=== PATIENT | male | born 1995 | race Caucasian/White ===

== ENCOUNTER 2020-06-12 11:13 | Outpatient (REF) | payer OTHER, SELFPAY | END 2020-06-12 11:14 | disposition home or self-care (01) | LOC: HO.LAB 11:13 | PROVIDERS: Visit Provider Internal Medicine | DX: Z20.822 Contact with and (suspected) exposure to COVID-19 (principal) | CPT/HCPCS: 36415; C9803; U0003; U0005 ==

== ENCOUNTER 2020-06-20 09:26 | Outpatient (REF) | payer OTHER, SELFPAY | END 2020-06-20 09:27 | disposition home or self-care (01) | LOC: HO.LAB 09:26 | PROVIDERS: Visit Provider Internal Medicine | DX: Z20.822 Contact with and (suspected) exposure to COVID-19 (principal) | CPT/HCPCS: 36415; C9803; U0003; U0005 ==

== ENCOUNTER 2021-10-30 22:01 | Emergency (ER) | payer SELFPAY ==
[2021-10-30 22:54] VITALS: BP 128/68; PULSE 72; RESP 16; TEMP 36.7; O2SAT 99; BMI 21.2
--- NOTE | 2021-10-31 00:01 | ED.DENTAL ---
HPI - Dental/Oral General Chief complaint: Dental/Oral Stated complaint: tooth pain Time Seen by Provider: 10/30/21 23:32 Source: patient Mode of arrival: ambulatory History of Present Illness HPI Narrative: 26-year-old male with no significant past medical history presenting to the ED complaining of pain and inflammation to bottom right wisdom tooth. Reports pain to area x months however worsening over the past 3 days. Admits pain radiates to face/ear. Denies difficulty/inability to swallow, drainage from area, drainage/hearing loss from ear, fever, chills. MD Complaint: tooth pain Related Data Previous Rx's Medication Instructions Recorded amoxicillin 875 mg-potassium 1 tab PO BID 7 days #14 tabs 10/31/21 clavulanate 125 mg tablet Allergies Allergy/AdvReac Type Severity Reaction Status Date / Time No Known Allergies Allergy Unverified 10/30/21 22:57 [No Known Allergies*] Review of Systems Review of Systems: Constitutional: No Fever, No Chills, No Fatigue, No Malaise ENT/Mouth: No Ear Pain, No Nasal Congestion, No Hoarseness, No sore throat, No Rhinorrhea, No Swallowing Difficulty, +dental pain, +gum swelling Eyes: No Eye Pain, No Swelling, No Redness Cardiovascular: No Chest Pain, No SOB Respiratory: No Cough, No Sputum, No Wheezing, No Dyspnea Gastrointestinal: No Nausea, No Vomiting, No Diarrhea, No Constipation, No Abdominal pain Musculoskeletal: No joint pain, No Myalgias Skin: No Skin Lesions, No rash Neuro: No Weakness, No Numbness, No Headache Yes all other systems are reviewed and are negative PMFSH Past Medical History Attestation statement: The following information was validated with the patient. Social History Social History Advance Directives: No Advance Directives Information Provided: Yes Physical Exam Vital Signs: Vital Signs: Last Vital Signs Temp 98.1 F 10/30/21 22:54 Pulse 72 10/30/21 22:54 Resp 16 10/30/21 22:54 BP 128/68 10/30/21 22:54 Pulse Ox 99 10/30/21 22:54 O2 Del Method 10/30/21 22:54 BMI result Body Mass Index 21.2 Const: General: cooperative, healthy appearing and no acute distress Orientation/consciousness: patient oriented x3 Limitations: no limitations HEENT: Other: +swelling and tenderness noted to gums surrounding right bottom 3rd molar, + fluctuance, no induration/erythema/cellulitis. No active drainage Head: Yes normal to inspection and Yes atraumatic Ears: hearing grossly normal bilaterally, external ears normal, TM's normal bilaterally and mastoids normal General nose exam: Normal external nose present Face and sinus: Yes normal facial exam Teeth and gingiva: gingiva abnormal Throat: Yes posterior oropharynx normal, Yes tonsils normal, No peritonsillar mass and No uvula laterally displaced Eyes: General: appearance normal, both eyes and all related structures EOM: EOMs intact bilaterally Neck: Neck: Yes normal visual inspection, Yes no lymphadenopathy, Yes no meningeal signs, Yes trachea midline, Yes supple and No anterior neck swelling Resp: Effort & Inspection: normal respiratory effort, no grunting, no respiratory distress and no stridor Auscultation: clear to auscultation bilaterally Cardio: Rate: regular rate Heart sounds: S1 normal heart sound present and S2 normal heart sound present Skin: Rashes: no rashes Wounds: no wounds Neuro: General: patient oriented x3, tone normal and no meningeal signs Gait exam (Neuro): Normal gait present Extrem: General: Yes normal to inspection MDM - Dental/Oral MDM Narrative Medical decision making narrative: 26-year-old male with no significant past medical history presenting to the ED complaining of pain and inflammation to bottom right wisdom tooth. Exam vital signs stable, NAD, nontoxic appearing, physical exam as above. Concern for gingival/dental abscess vs edema or chronic inflammation Plan: Needle aspiration, p.o. antibiotics Differential Diagnosis Differential diagnosis: Likely gingival abscess Medical Records Attestation: I reviewed the patient's medical records. Lab Data Attestation: I reviewed the patient's lab results. Procedures Abscess I/D Site: oral Side (if applicable): right Local Anesthetic: other anesthetic (Lolicane pop) Technique: needle aspiration Amount of fluid expressed (mL): 0.5 Sent for culture/gram staining?: No Packing used?: none Discharge Plan Discharge Clinical Impression: Gingival abscess Patient Disposition: Home, Self-Care Instructions: Dental Abscess (ED) Additional Instructions: Your dental abscess was drained today in the emergency department. Start taking Augmentin which is an antibiotic. Also take Tylenol and Motrin at home for pain You need to follow-up with a dentist. If symptoms persist or worsen, you fever, persistent or worsening swelling please return to the emergency department Prescriptions: New amoxicillin-pot clavulanate 875-125 mg tablet 1 tab PO BID 7 Days Qty: 14 0RF Referrals: Jordin Mcnally, JACQUES [Dentist] - Nereyda Cool DMD [Dentist] -
== END 2021-10-31 00:31 | disposition home or self-care (01) ==
PROVIDERS: Emergency Provider Emergency Medicine Emergency Medical Services
DX: K05.319 Chronic periodontitis, localized, unspecified severity (principal); K08.89 Other specified disorders of teeth and supporting structures
CPT/HCPCS: 41800; 99283

== ENCOUNTER 2022-07-12 21:56 | Emergency (ER) | payer SELFPAY ==
--- NOTE | ~2022-07-12 | XR_ITS ---
EXAMINATION: XR ANKLE, RIGHT XR FOOT, RIGHT CLINICAL INFORMATION: Injury, pain COMPARISON: None TECHNIQUE: 3 views of the left ankle. 3 views of the left foot. FINDINGS: Left ankle: Alignment across the ankle is anatomic with mild soft tissue swelling especially laterally. Distal tibia and fibula appear intact. Left foot: Osseous alignment is anatomic. There is an essentially nondisplaced transverse fracture at the base of the fifth metatarsal with adjacent soft tissue swelling. Remaining osseous structures appear intact. XR/XR ankle LT min 3V IMPRESSION: Essentially nondisplaced transverse fracture at the base of the fifth metatarsal.
--- NOTE | ~2022-07-12 | XR_ITS ---
EXAMINATION: XR ANKLE, RIGHT XR FOOT, RIGHT CLINICAL INFORMATION: Injury, pain COMPARISON: None TECHNIQUE: 3 views of the left ankle. 3 views of the left foot. FINDINGS: Left ankle: Alignment across the ankle is anatomic with mild soft tissue swelling especially laterally. Distal tibia and fibula appear intact. Left foot: Osseous alignment is anatomic. There is an essentially nondisplaced transverse fracture at the base of the fifth metatarsal with adjacent soft tissue swelling. Remaining osseous structures appear intact. XR/XR foot LT min 3V IMPRESSION: Essentially nondisplaced transverse fracture at the base of the fifth metatarsal.
[2022-07-12 22:17] VITALS: BP 128/67; PULSE 86; RESP 16; TEMP 37.3; O2SAT 98; BMI 22.1
--- NOTE | 2022-07-12 23:37 | ED.LOWEXIN ---
HPI - Extremity Injury (Lower) General Chief Complaint: Extremity Injury, Lower Stated Complaint: left ankle inj Time Seen by Provider: 07/12/22 22:24 Source: patient and family (Brother) Mode of arrival: ambulatory History of Present Illness HPI Narrative: 26-year-old male without significant past medical history presents after having injured his left ankle during a basketball game 2 days ago and presents with persistent lateral left foot pain, persistent swelling, bruising. Related Data Previous Rx's Medication Instructions Recorded amoxicillin 875 mg-potassium 1 tab PO BID 7 days #14 tabs 10/31/21 clavulanate 125 mg tablet Allergies Allergy/AdvReac Type Severity Reaction Status Date / Time No Known Allergies Allergy Verified 07/12/22 22:16 [No Known Allergies*] Review of Systems Review of Systems: Pertinent positives and negatives as stated in HPI [facility] Past Medical History Source: nursing notes reviewed Social History Social History Advance Directives: No Advance Directives Information Provided: No Physical Exam Vital Signs: Vital Signs: Last Vital Signs Temp 99.1 F 07/12/22 22:17 Pulse 86 07/12/22 22:17 Resp 16 07/12/22 22:17 BP 128/67 07/12/22 22:17 Pulse Ox 98 07/12/22 22:17 O2 Del Method 07/12/22 22:17 BMI result Body Mass Index 22.1 VITAL SIGNS: Reviewed. GENERAL: Well developed, well nourished, in no acute distress. HEAD: Normocephalic/atraumatic EYES: PERRLA, EOMI LUNGS: Normal breath sounds. No adventitious sounds or accessory muscle use. SpO2<98> CARDIOVASCULAR: Regular rate and rhythm without noted murmurs ABDOMEN: Soft, non-tender, non-distended with bowel sounds. MUSCULOSKELETAL: No tenderness, deformities, or effusions noted on gross inspection. EXTREMITIES: No cyanosis, clubbing or edema; LEFT ANKLE/FOOT: There is significant swelling to the foot as compared to the ankle with bruising noted at the base of the toes and along the left lateral edge and lateral malleolus. No pain on palpation over medial malleolus, patient is able to flex and extend his foot at the ankle and has maximal tenderness palpation at the head of the 5th metatarsal. There is no tenderness palpation at the fibular head, foot is warm, capillary refills less than 3 seconds and sensation is intact with palpable DP/PT. SKIN: Inspection of the skin reveals no rashes, ulcerations, jaundice, pallor, or petechiae. NEUROLOGIC: Alert and oriented x 4. Strength and sensation to light touch were grossly intact x 4. Medical Decision Making Medical Decision Making [facility] Narrative: 26-year-old male with history and clinical presentation concerning for possible fracture, no evidence to suggest fracture at the fibular head but suspect fracture of 5th metatarsal. Audi wrap was applied, patient will be placed in a postop shoe and given crutches. Patient also given Tylenol and ibuprofen as well as a referral to follow-up with orthopedics on Thursday. Differential Diagnosis Please see the discussion above Radiology Impression Radiologist Impression: My interpretation is in agreement with radiology's impression of the imaging studies. Discharge Plan Discharge Clinical Impression: Fracture of base of fifth metatarsal bone of left foot Patient Disposition: Home, Self-Care Instructions: Crutch Instructions (ED), Foot Fracture in Adults (ED), R.I.C.E. Treatment (ED) Additional Instructions: 1. Please keep this extremity elevated as much as possible. 2. Recommend [id number] Tylenol/ibuprofen as needed for pain control. Apply ice to unexposed skin for 10-15 minutes, 3 to 4 times a day. 3. You have been given a referral to follow-up with orthopedics and should call them on Thursday morning to set up an appointment for re-evaluation further outpatient management. Return to the ER for any worsening symptoms. Prescriptions: No Action amoxicillin-pot clavulanate 875-125 mg tablet 1 tab PO BID 7 Days Qty: 14 0RF Referrals: Chuck Muro MD [Physician] - ( XR/XR ankle LT min 3V IMPRESSION: Essentially nondisplaced transverse fracture at the base of the fifth metatarsal) Stand Alone Forms: Work/School Release
[2022-07-13] MEDS: Acetaminophen 325 MG TABLET 975 MG PO (00:03)
[2022-07-13] MEDS: Ibuprofen 400 MG TABLET PO (00:03)
== END 2022-07-13 00:11 | disposition home or self-care (01) ==
PROVIDERS: Emergency Provider Student in an Organized Health Care Education/Training Program
DX: S92.355A Nondisplaced fracture of fifth metatarsal bone, left foot, initial encounter for closed fracture (principal); X50.1XXA Overexertion from prolonged static or awkward postures, initial encounter; Y93.67 Activity, basketball; Y92.310 Basketball court as the place of occurrence of the external cause; Y99.9 Unspecified external cause status
CPT/HCPCS: 73610; 73630; 99283

== ENCOUNTER 2022-07-18 07:50 | Outpatient (REF) | payer SELFPAY | END 2022-07-18 07:51 | disposition home or self-care (01) | LOC: HO.HOSX 07:50 | PROVIDERS: Visit Provider Physician Assistant | DX: Z13.89 Encounter for screening for other disorder (principal) ==